=== PATIENT | female | born 1950 | race Caucasian/White ===

== ENCOUNTER 2019-10-31 16:07 | Emergency (ER) | payer OTHER ==
[~2019-10-31] VITALS: Ht 152.4 cm; Wt 73.9 kg
[2019-10-31] MEDS ORDERED: CAPOTEN12.5 MG PO (16:28)
[2019-10-31] MEDS ORDERED: ELIQUIS5 MG PO (16:29)
== END 2019-10-31 21:41 | disposition home or self-care (01) ==
LOC: ER 16:07
DX: R10.11 Right upper quadrant pain (principal)